=== PATIENT | female | born 1990 | race Caucasian/White ===

== ENCOUNTER 2023-10-04 22:34 | Emergency (ER) | payer OTHER ==
[~2023-10-04] VITALS: Ht 177.8 cm; Wt 55.3 kg
[2023-10-04 22:42] VITALS: BP 130/73; PULSE 101; RESP 16; TEMP 99.4; O2SAT 100
== END 2023-10-05 00:14 | disposition left against medical advice (07) ==
LOC: ER 22:34
DX: R51.9 Headache, unspecified (principal); Z53.21 Procedure and treatment not carried out due to patient leaving prior to being seen by health care provider
CPT/HCPCS: 99281

== ENCOUNTER 2023-10-10 13:25 | Emergency (ER) | payer MEDICAID, OTHER ==
[~2023-10-10] VITALS: Ht 177.8 cm; Wt 50.0 kg
[2023-10-10 13:30] VITALS: O2SAT 98
[2023-10-10] MEDS ORDERED: IBUPROFEN 400MG TABLET PO ONE (14:15)
[2023-10-10] MEDS ORDERED: ACETAMINOPHEN 325MG TABLET PO ONE (14:15)
[2023-10-10] MEDS ORDERED: LIDOCAINE 5% PATCH TOP SCH (14:15)
[2023-10-10 14:36] VITALS: TEMP 98.4
[2023-10-10 14:37] VITALS: BP 114/66; PULSE 90; RESP 16
== END 2023-10-10 14:45 | disposition left against medical advice (07) ==
LOC: ER 13:25
DX: M54.50 Low back pain, unspecified (principal); Z33.1 Pregnant state, incidental; Z88.0 Allergy status to penicillin; W01.0XXA Fall on same level from slipping, tripping and stumbling without subsequent striking against object, initial encounter; Y93.89 Activity, other specified; Y92.89 Other specified places as the place of occurrence of the external cause; Y99.8 Other external cause status
CPT/HCPCS: 81025; 99282

== ENCOUNTER 2023-11-10 03:08 | Emergency (ER) | payer MEDICAID ==
[~2023-11-10] VITALS: Ht 162.6 cm; Wt 61.0 kg
[2023-11-10 03:14] VITALS: O2SAT 100
[2023-11-10 06:03] LABS: BASOPHILS % 0.3 % (0.0-2.0); EOSINOPHILS % 0.1 % (0.0-5.0); HEMATOCRIT. 40.5 % (36.0-48.0); HEMOGLOBIN. 13.5 g/dL (12.0-16.0); LYMPHOCYTES % 17.3 % (20.0-50.0); MEAN CORPUSCULAR HEMOGLOBIN 30.9 pg (28.0-32.0); MEAN CORPUSCULAR HGB CONC 33.3 g/dL (31.0-37.0); MEAN CORPUSCULAR VOLUME 92.8 fL (81.0-99.0); MEAN PLATELET VOLUME 7.7 fl (7.4-10.4); MONOCYTES % 3.6 % (2.0-8.0); NEUTROPHILS % 78.7 % (40.0-76.0); PLATELET 307 x1000/uL (130-400); RED BLOOD CELL COUNT 4.36 mill/uL (4.2-5.4); RED CELL DISTRIBUTION WIDTH 13.5 % (11.6-14.6); WHITE BLOOD COUNT 10.3 x1000/uL (4.5-11.0)
[2023-11-10 06:14] LABS: ALANINE AMINOTRANSFERASE 9 IU/L (10-49); ALBUMIN 4.7 g/dL (3.2-4.8); ASPARTATE AMINOTRANSFERASE 16 IU/L (<34); BILIRUBIN TOTAL 0.7 mg/dL (0.1-1.0); CALCIUM 9.4 mg/dL (8.7-10.4); CARBON DIOXIDE 21 mEq/L (21-32); CHLORIDE 106 mEq/L (98-107); CREATININE 0.5 mg/dL (0.6-1.0); GLUCOSE 85 mg/dL (70-105); POTASSIUM 3.4 mEq/L (3.5-5.1); PROTEIN TOTAL 8.2 g/dL (6.0-8.3); SODIUM 137 mEq/L (136-145); UREA NITROGEN BLOOD 11 mg/dL (9-23)
[2023-11-10 06:20] LABS: HCG SCREEN POSITIVE
[2023-11-10 06:24] LABS: ETHANOL BLOOD < 10 mg/dL (<10)
[2023-11-10] MEDS: KETOROLAC 30MG/ML VIAL IV STA (06:24)
[2023-11-10 06:52] VITALS: BP 96/53; PULSE 93; RESP 18; TEMP 98.4
[2023-11-10] MEDS ORDERED: ACET-2708 PO (07:11)
== END 2023-11-10 08:24 | disposition home or self-care (01) ==
LOC: ER 03:18
DX: S02.2XXA Fracture of nasal bones, initial encounter for closed fracture (principal); Y08.89XA Assault by other specified means, initial encounter; Y93.89 Activity, other specified; Y92.89 Other specified places as the place of occurrence of the external cause; Y99.8 Other external cause status
CPT/HCPCS: 80053; 80320; 84703; 85025; 36415; 70450; 70486; 96374; 99285; J1885; Z7610 ×3; G0480

== ENCOUNTER 2024-02-11 21:32 | Emergency (ER) | payer MEDICAID, OTHER ==
[~2024-02-11] VITALS: Ht 177.8 cm; Wt 50.0 kg
[~2024-02-11 21:32] MED LIST: ACET-2708 PO
[2024-02-11 22:42] VITALS: BP 133/76; PULSE 99; RESP 20; TEMP 98.5; O2SAT 99
[2024-02-12] MEDS ORDERED: TOPUD PO (05:52)
[2024-02-12] MEDS: ACETAMINOPHEN 325MG TABLET PO ONE (06:10)
== END 2024-02-12 06:42 | disposition home or self-care (01) ==
LOC: ER 21:32
DX: M79.671 Pain in right foot (principal); Z88.0 Allergy status to penicillin
CPT/HCPCS: 73620; 99283